=== PATIENT | female | born 1995 | race Caucasian/White ===

== ENCOUNTER → 2017-04-18 | Outpatient (CLI) | payer BC ==
[2017-04-18 10:09] LABS: EOS # 0.1 (0.04-0.40); HEMATOCRIT 42.7 % (37.0-47.0); HEMOGLOBIN 13.5 g/dL (12.5-16.0); LYMPH# 1.9 (1.50-4.00); MEAN CELL VOLUME 94 fl (78-100); MEAN CORPUSCULAR HEMOGLOBIN 30 pg (27-31); MEAN CORPUSCULAR HGB CONC 32 g/dL (33-37); MEAN PLATELET VOLUME 9.7 fl (7.4-10.4); MONO # 0.5 (0.20-0.80); NEU # 5.3 (1.40-6.50); PLATELET COUNT 317 K/mm3 (130-400); RED BLOOD COUNT 4.54 M/mm3 (4.10-5.30); RED CELL DISTRIBUTION WIDTH 12.6 % (11.5-14.5); WHITE BLOOD COUNT 7.8 K/mm3 (4.8-10.8)
[2017-04-18 10:12] LABS: ALBUMIN 4.7 g/dL (3.5-5.0); BUN/CREATININE RATIO 14.8 (6.0-26.0); CALCIUM 9.6 mg/dL (8.4-10.2); POTASSIUM 4.1 mmol/L (3.6-5.0); TOTAL BILIRUBIN 0.4 mg/dL (0.2-1.3); TOTAL PROTEIN 8.4 g/dL (6.3-8.2)
[2017-04-18 12:00] LABS: URINE APPEARANCE HAZY; URINE BILIRUBIN NEGATIVE (NEGATIVE); URINE BLOOD NEGATIVE (NEGATIVE); URINE COLOR YELLOW; URINE GLUCOSE NEGATIVE (NEGATIVE); URINE KETONE NEGATIVE (NEGATIVE); URINE LEUKOCYTE ESTERASE NEGATIVE (NEGATIVE); URINE NITRATE NEGATIVE (NEGATIVE); URINE PROTEIN(semi-quant) NEGATIVE (NEGATIVE); URINE UROBILINOGEN NORMAL (NORMAL); URINE WBC 0-1 /hpf (0-3)
== END ==
LOC: RAD 09:29
PROVIDERS: Family Medicine
DX: E66.3 Overweight (principal); Z00.00 Encounter for general adult medical examination without abnormal findings

== ENCOUNTER → 2017-09-12 | Outpatient (CLI) | payer BC ==
[2017-09-12 13:02] LABS: CLUE CELLS PRESENT (Not Observd)
[2017-09-12 14:14] LABS: URINE APPEARANCE HAZY; URINE COLOR YELLOW
[2017-09-12 14:15] LABS: URINE BILIRUBIN NEGATIVE (NEGATIVE); URINE BLOOD NEGATIVE (NEGATIVE); URINE GLUCOSE NEGATIVE (NEGATIVE); URINE KETONE NEGATIVE (NEGATIVE); URINE LEUKOCYTE ESTERASE 1+ (NEGATIVE); URINE NITRATE NEGATIVE (NEGATIVE); URINE PROTEIN(semi-quant) TRACE mg/dL (NEGATIVE); URINE UROBILINOGEN NORMAL (NORMAL)
== END ==
LOC: LAB 11:33
PROVIDERS: Nurse Practitioner Family
DX: R39.15 Urgency of urination (principal); N89.8 Other specified noninflammatory disorders of vagina
CPT/HCPCS: Q0111

== ENCOUNTER → 2017-12-17 | Outpatient (CLI) | payer BC | LOC: LAB 18:11 | DX: N39.0 Urinary tract infection, site not specified (principal) ==

== ENCOUNTER → 2018-01-15 | Outpatient (CLI) | payer BC ==
[2018-01-15 14:23] LABS: URINE APPEARANCE HAZY; URINE BILIRUBIN NEGATIVE (NEGATIVE); URINE BLOOD NEGATIVE (NEGATIVE); URINE COLOR YELLOW; URINE GLUCOSE NEGATIVE (NEGATIVE); URINE KETONE 2+ (NEGATIVE); URINE LEUKOCYTE ESTERASE NEGATIVE (NEGATIVE); URINE MUCUS PRESENT (NOT PRESENT); URINE NITRATE NEGATIVE (NEGATIVE); URINE PROTEIN(semi-quant) 1+ mg/dL (NEGATIVE); URINE UROBILINOGEN NORMAL (NORMAL); URINE WBC 0-1 /hpf (0-3)
== END ==
LOC: RAD 12:35
PROVIDERS: Nurse Practitioner Family
DX: R10.32 Left lower quadrant pain (principal)

== ENCOUNTER → 2018-07-01 | Outpatient (CLI) | payer BC ==
[2018-07-01 09:09] LABS: EOS # 0.1 (0.04-0.40); HEMATOCRIT 41.2 % (37.0-47.0); HEMOGLOBIN 13.2 g/dL (12.5-16.0); LYMPH# 1.7 (1.50-4.00); MEAN CELL VOLUME 96 fl (78-100); MEAN CORPUSCULAR HEMOGLOBIN 31 pg (27-31); MEAN CORPUSCULAR HGB CONC 32 g/dL (33-37); MEAN PLATELET VOLUME 9.9 fl (7.4-10.4); MONO # 0.7 (0.20-0.80); NEU # 5.6 (1.40-6.50); PLATELET COUNT 248 K/mm3 (130-400); RED CELL DISTRIBUTION WIDTH 12.6 % (11.5-14.5); WHITE BLOOD COUNT 8.1 K/mm3 (4.8-10.8)
[2018-07-01 09:15] LABS: ALBUMIN 4.9 g/dL (3.5-5.0); CALCIUM 9.6 mg/dL (8.4-10.2); POTASSIUM 4.1 mmol/L (3.6-5.0); TOTAL BILIRUBIN 0.9 mg/dL (0.2-1.3); TOTAL PROTEIN 7.9 g/dL (6.3-8.2)
== END ==
LOC: LAB 08:45
PROVIDERS: Family Medicine
DX: Z00.00 Encounter for general adult medical examination without abnormal findings (principal)

== ENCOUNTER 2018-10-23 15:25 | Emergency (ER) | payer BC ==
[~2018-10-23] VITALS: Ht 154.9 cm; Wt 60.5 kg
[2018-10-23] MEDS ORDERED: PRENATAL 19 TA1 EACH PO (15:47)
[2018-10-23] MEDS ORDERED: NATURE'S BLEND500 M5 PO (15:47)
[2018-10-23 16:27] LABS: HEMATOCRIT 40.9 % (37.0-47.0); HEMOGLOBIN 13.6 g/dL (12.5-16.0); MEAN CELL VOLUME 94 fl (78-100); MEAN CORPUSCULAR HEMOGLOBIN 31 pg (27-31); MEAN CORPUSCULAR HGB CONC 33 g/dL (33-37); MEAN PLATELET VOLUME 9.9 fl (7.4-10.4); PLATELET COUNT 255 K/mm3 (130-400); RED BLOOD COUNT 4.37 M/mm3 (4.10-5.30); RED CELL DISTRIBUTION WIDTH 13.2 % (11.5-14.5)
[2018-10-23 16:33] LABS: ALBUMIN 4.2 g/dL (3.5-5.0); POTASSIUM 4.1 mmol/L (3.5-5.1)
[2018-10-23 16:34] LABS: CALCIUM 9.2 mg/dL (8.3-10.5)
[2018-10-23 16:36] LABS: TOTAL PROTEIN 7.6 g/dL (6.4-8.3)
[2018-10-23 16:37] LABS: TOTAL BILIRUBIN 0.5 mg/dL (0.2-1.2)
[2018-10-23 16:46] LABS: NEUTROPHILS 96 % (42-75); WHITE BLOOD COUNT 21.6 K/mm3 (4.8-10.8)
[2018-10-23 16:47] LABS: LYMPHOCYTE 2 % (20-51); MONOCYTE 2 % (3-10)
[2018-10-23 18:32] LABS: URINE APPEARANCE HAZY; URINE BILIRUBIN NEGATIVE (NEGATIVE); URINE COLOR YELLOW; URINE GLUCOSE NEGATIVE (NEGATIVE); URINE KETONE 3+ (NEGATIVE); URINE NITRATE NEGATIVE (NEGATIVE); URINE PROTEIN(semi-quant) TRACE mg/dL (NEGATIVE); URINE UROBILINOGEN NORMAL (NORMAL)
[2018-10-23 18:33] LABS: URINE BLOOD NEGATIVE (NEGATIVE); URINE LEUKOCYTE ESTERASE TRACE (NEGATIVE)
[2018-10-23] MEDS ORDERED: AMOXIL500 M1 PO (20:58)
[2018-10-23] MEDS ORDERED: ZOFRAN ODT4 MG PO (20:58)
[2018-10-23 21:12] VITALS: BP 101/50
== END 2018-10-23 21:12 | disposition home or self-care (01) ==
LOC: AMSURD 15:25 → ED 15:25 → EDSTATUS 15:37 → ED 21:12
PROVIDERS: Nurse Practitioner
DX: O99.611 Diseases of the digestive system complicating pregnancy, first trimester (principal); A04.9 Bacterial intestinal infection, unspecified; E86.0 Dehydration; Z98.890 Other specified postprocedural states; Z3A.12 12 weeks gestation of pregnancy
CPT/HCPCS: J0290; J1885; J2405; J2550; J7030

== ENCOUNTER → 2018-10-25 | Outpatient (CLI) | payer BC ==
[2018-10-23 21:12] VITALS: BP 101/50
[~2018-10-25] MED LIST: AMOXIL500 M1 PO; NATURE'S BLEND500 M5 PO; PRENATAL 19 TA1 EACH PO; ZOFRAN ODT4 MG PO
== END ==
LOC: LAB 08:16
DX: R11.0 Nausea (principal); R51 Headache

== ENCOUNTER → 2019-06-07 | Outpatient (CLI) | payer BC ==
[2019-06-07 14:47] LABS: EOS # 0.1 (0.04-0.40); EOS % 1.4 % (1.0-5.0); HEMATOCRIT 42.3 % (37.0-47.0); HEMOGLOBIN 12.9 g/dL (12.5-16.0); LYMPH# 2.4 (1.50-4.00); MEAN CELL VOLUME 102 fl (78-100); MEAN CORPUSCULAR HEMOGLOBIN 31 pg (27-31); MEAN CORPUSCULAR HGB CONC 31 g/dL (33-37); MEAN PLATELET VOLUME 9.7 fl (7.4-10.4); MONO # 0.6 (0.20-0.80); NEU # 4.6 (1.40-6.50); PLATELET COUNT 237 K/mm3 (130-400); RED BLOOD COUNT 4.16 M/mm3 (4.10-5.30); RED CELL DISTRIBUTION WIDTH 12.2 % (11.5-14.5); WHITE BLOOD COUNT 7.8 K/mm3 (4.8-10.8)
[2019-06-07 15:00] LABS: ALBUMIN 4.3 g/dL (3.5-5.0)
[2019-06-07 15:01] LABS: POTASSIUM 4.2 mmol/L (3.5-5.1)
[2019-06-07 15:02] LABS: CALCIUM 9.4 mg/dL (8.3-10.5)
[2019-06-07 15:03] LABS: TOTAL PROTEIN 7.3 g/dL (6.4-8.3)
[2019-06-07 15:05] LABS: TOTAL BILIRUBIN 0.4 mg/dL (0.2-1.2)
== END ==
LOC: LAB 14:25
PROVIDERS: Family Medicine
DX: R00.2 Palpitations (principal)

== ENCOUNTER → 2020-03-09 | Outpatient (CLI) | payer BC ==
[2019-06-09 22:30] VITALS: BP 138/88
[~2020-03-09] MED LIST changes: +PROPRANOLOL HCL40 M2 PO; +XANAX0.25 M1 PO; +ZOLOFT 50MG50 MG PO
== END ==
LOC: LAB 09:49
DX: R11.2 Nausea with vomiting, unspecified (principal); R68.83 Chills (without fever); M79.10 Myalgia, unspecified site; R53.83 Other fatigue; Z20.828 Contact with and (suspected) exposure to other viral communicable diseases

== ENCOUNTER → 2020-07-03 | Outpatient (CLI) | payer BC ==
[2019-06-09 22:30] VITALS: BP 138/88
[2020-07-03 16:31] LABS: EOS # 0.1 (0.04-0.40); EOS % 1.4 % (1.0-5.0); HEMATOCRIT 41.3 % (37.0-47.0); HEMOGLOBIN 12.9 g/dL (12.5-16.0); LYMPH# 2.8 (1.50-4.00); MEAN CELL VOLUME 97 fl (78-100); MEAN CORPUSCULAR HEMOGLOBIN 30 pg (27-31); MEAN CORPUSCULAR HGB CONC 31 g/dL (33-37); MEAN PLATELET VOLUME 9.5 fl (7.4-10.4); MONO # 0.7 (0.20-0.80); NEU # 5.9 (1.40-6.50); PLATELET COUNT 299 K/mm3 (130-400); RED BLOOD COUNT 4.27 M/mm3 (4.10-5.30); RED CELL DISTRIBUTION WIDTH 12.3 % (11.5-14.5); WHITE BLOOD COUNT 9.5 K/mm3 (4.8-10.8)
[2020-07-03 16:35] LABS: ALBUMIN 4.9 g/dL (3.5-5.0); POTASSIUM 3.5 mmol/L (3.5-5.1); SODIUM 142 mmol/L (136-145)
[2020-07-03 16:37] LABS: CALCIUM 9.5 mg/dL (8.3-10.5)
[2020-07-03 16:38] LABS: GLUCOSE 93 mg/dL (65-105); TOTAL PROTEIN 7.8 g/dL (6.4-8.3)
[2020-07-03 16:39] LABS: CARBON DIOXIDE 25 mmol/L (22-29)
[2020-07-03 16:40] LABS: TOTAL BILIRUBIN 0.4 mg/dL (0.2-1.2)
[2020-07-03 16:43] LABS: AST-SGOT 17 U/L (5-34)
[2020-07-03 16:44] LABS: ALT/SGPT 17 U/L (0-55)
[2020-07-03 16:59] LABS: TROPONIN-I < 0.03 ng/mL (<0.030)
== END ==
LOC: LAB 16:09
PROVIDERS: Family Medicine
DX: R07.89 Other chest pain (principal)

== ENCOUNTER → 2020-12-22 | Outpatient (CLI) | payer BC | LOC: RAD 07:45 | DX: R11.0 Nausea (principal) ==

== ENCOUNTER → 2021-01-29 | Outpatient (CLI) | payer BC ==
[2021-01-29 12:07] LABS: HEMATOCRIT 39.3 % (37.0-47.0); HEMOGLOBIN 12.4 g/dL (12.5-16.0); MEAN PLATELET VOLUME 9.3 fl (7.4-10.4); RED BLOOD COUNT 4.11 M/mm3 (4.10-5.30); WHITE BLOOD COUNT 10.3 K/mm3 (4.8-10.8)
[2021-01-29 12:29] LABS: ALBUMIN 4.4 g/dL (3.5-5.0)
[2021-01-29 12:30] LABS: POTASSIUM 4.3 mmol/L (3.5-5.1)
[2021-01-29 12:31] LABS: CALCIUM 9.4 mg/dL (8.3-10.5)
[2021-01-29 12:32] LABS: TOTAL PROTEIN 7.7 g/dL (6.4-8.3)
[2021-01-29 12:34] LABS: TOTAL BILIRUBIN 0.4 mg/dL (0.2-1.2)
== END ==
LOC: LAB 11:51
PROVIDERS: Family Medicine
DX: G25.81 Restless legs syndrome (principal)

== ENCOUNTER → 2021-02-20 | Outpatient (CLI) | payer BC | LOC: LAB 09:47 | DX: J02.9 Acute pharyngitis, unspecified (principal) ==

== ENCOUNTER → 2021-02-26 | Outpatient (CLI) | payer BC ==
[2021-02-26 08:46] LABS: BASO # 0.05 K/mm3 (0.02-0.10); EOS # 0.15 K/mm3 (0.04-0.40); EOS % 1.5 % (1.0-5.0); HEMATOCRIT 39.7 % (37.0-47.0); HEMOGLOBIN 12.6 g/dL (12.5-16.0); LYMPH# 2.04 K/mm3 (1.50-4.00); MEAN CELL VOLUME 96 fl (78-100); MEAN CORPUSCULAR HEMOGLOBIN 30 pg (27-31); MEAN CORPUSCULAR HGB CONC 32 g/dL (33-37); MEAN PLATELET VOLUME 9.3 fl (7.4-10.4); MONO # 0.54 K/mm3 (0.20-0.80); NEU # 7.47 K/mm3 (1.40-6.50); PLATELET COUNT 272 K/mm3 (130-400); RED BLOOD COUNT 4.15 M/mm3 (4.10-5.30); RED CELL DISTRIBUTION WIDTH 11.9 % (11.5-14.5); WHITE BLOOD COUNT 10.3 K/mm3 (4.8-10.8)
== END ==
LOC: LAB 08:25
PROVIDERS: Nurse Practitioner Family
DX: J02.9 Acute pharyngitis, unspecified (principal)

== ENCOUNTER → 2021-04-19 | Outpatient (CLI) | payer BC ==
[2021-04-19 08:31] LABS: ALBUMIN 4.2 g/dL (3.5-5.0); POTASSIUM 4.1 mmol/L (3.5-5.1)
[2021-04-19 08:32] LABS: CALCIUM 9.2 mg/dL (8.3-10.5)
[2021-04-19 08:33] LABS: TOTAL PROTEIN 7.4 g/dL (6.4-8.3)
[2021-04-19 08:35] LABS: TOTAL BILIRUBIN 0.6 mg/dL (0.2-1.2)
[2021-04-19 22:23] LABS: FOLATE (FOLIC ACID) 9.5 ng/mL (2.0-20.0)
[2021-04-24 13:42] LABS: VITAMIN E 13.4 mg/L (())
== END ==
LOC: LAB 07:38
PROVIDERS: Family Medicine
DX: Z00.00 Encounter for general adult medical examination without abnormal findings (principal)

== ENCOUNTER → 2021-07-16 | Outpatient (CLI) | payer BC | LOC: LAB 11:29 | DX: E55.9 Vitamin D deficiency, unspecified (principal) ==

== ENCOUNTER → 2021-10-12 | Outpatient (CLI) | payer BC | LOC: LAB 13:56 | DX: N91.1 Secondary amenorrhea (principal) ==

== ENCOUNTER → 2023-03-25 | Outpatient (CLI) | payer BC ==
[~2023-03-25] MED LIST changes: +CEPHALEXIN500 M2 PO; +PEPCID 20MG TAB20 MG PO
[2023-03-25 16:00] LABS: BASO # 0.03 K/mm3 (0.02-0.10); EOS # 0.13 K/mm3 (0.04-0.40); EOS % 1.5 % (1.0-5.0); HEMATOCRIT 39.3 % (37.0-47.0); HEMOGLOBIN 12.6 g/dL (12.5-16.0); LYMPH# 2.71 K/mm3 (1.50-4.00); MEAN CELL VOLUME 95 fl (78-100); MEAN CORPUSCULAR HEMOGLOBIN 31 pg (27-31); MEAN CORPUSCULAR HGB CONC 32 g/dL (33-37); MEAN PLATELET VOLUME 9.2 fl (7.4-10.4); MONO # 0.47 K/mm3 (0.20-0.80); NEU # 5.44 K/mm3 (1.40-6.50); PLATELET COUNT 292 K/mm3 (130-400); RED BLOOD COUNT 4.12 M/mm3 (4.10-5.30); RED CELL DISTRIBUTION WIDTH 12.2 % (11.5-14.5); WHITE BLOOD COUNT 8.8 K/mm3 (4.8-10.8)
[2023-03-25 16:07] LABS: CALCIUM 9.9 mg/dL (8.3-10.5)
[2023-03-25 16:08] LABS: TOTAL PROTEIN 7.7 g/dL (6.4-8.3)
[2023-03-25 16:10] LABS: TOTAL BILIRUBIN 0.4 mg/dL (0.2-1.2)
== END ==
LOC: LAB 15:42
PROVIDERS: Nurse Practitioner
DX: E61.1 Iron deficiency (principal); K90.9 Intestinal malabsorption, unspecified

== ENCOUNTER → 2023-03-31 | Outpatient (CLI) | payer BC | LOC: LAB 16:20 | DX: R53.83 Other fatigue (principal) ==

== ENCOUNTER → 2023-08-29 | Outpatient (CLI) | payer BC ==
[2023-08-29 10:00] LABS: BASO # 0.03 K/mm3 (0.02-0.10); EOS # 0.04 K/mm3 (0.04-0.40); EOS % 0.8 % (1.0-5.0); HEMATOCRIT 38.9 % (37.0-47.0); HEMOGLOBIN 12.5 g/dL (12.5-16.0); LYMPH# 1.83 K/mm3 (1.50-4.00); MEAN CELL VOLUME 94 fl (78-100); MEAN CORPUSCULAR HEMOGLOBIN 30 pg (27-31); MEAN CORPUSCULAR HGB CONC 32 g/dL (33-37); MEAN PLATELET VOLUME 9.8 fl (7.4-10.4); MONO # 0.27 K/mm3 (0.20-0.80); NEU # 2.74 K/mm3 (1.40-6.50); PLATELET COUNT 250 K/mm3 (130-400); RED BLOOD COUNT 4.13 M/mm3 (4.10-5.30); WHITE BLOOD COUNT 4.9 K/mm3 (4.8-10.8)
[2023-08-29 10:01] LABS: ALBUMIN 4.7 g/dL (3.5-5.0)
[2023-08-29 10:03] LABS: CALCIUM 9.4 mg/dL (8.3-10.5)
[2023-08-29 10:04] LABS: TOTAL PROTEIN 7.3 g/dL (6.4-8.3)
[2023-08-29 10:06] LABS: TOTAL BILIRUBIN 0.6 mg/dL (0.2-1.2)
[2023-09-16 14:35] LABS: BAKERS YEAST ALLERGEN CLASS SEE REPORT (()); BAKERS YEAST ALLERGEN COUNT SEE REPORT (()); CORN ALLERGEN COUNT SEE REPORT (()); EGG WHITE ALLERGEN CLASS SEE REPORT (()); EGG WHITE ALLERGEN COUNT SEE REPORT (()); MILK ALLERGEN CLASS SEE REPORT (()); MILK ALLERGEN COUNT SEE REPORT (()); ORANGE ALLERGEN CLASS SEE REPORT (()); ORANGE ALLERGEN COUNT SEE REPORT (()); PEANUT ALLERGEN CLASS SEE REPORT (()); PEANUT ALLERGEN COUNT SEE REPORT (()); RICE ALLERGEN CLASS SEE REPORT (()); RICE ALLERGEN COUNT SEE REPORT (()); SOYBEAN ALLERGEN CLASS SEE REPORT (()); SOYBEAN ALLERGEN COUNT SEE REPORT (()); STRAWBERRY ALLERGEN CLASS SEE REPORT (()); STRAWBERRY ALLERGEN COUNT SEE REPORT (()); TOMATO ALLERGEN CLASS SEE REPORT (()); TOMATO ALLERGEN COUNT SEE REPORT (()); WHEAT ALLERGEN CLASS SEE REPORT (()); WHEAT ALLERGEN COUNT SEE REPORT (())
== END ==
LOC: LAB 08:59
PROVIDERS: Family Medicine
DX: J30.2 Other seasonal allergic rhinitis (principal); E78.5 Hyperlipidemia, unspecified; I10 Essential (primary) hypertension; B96.81 Helicobacter pylori [H. pylori] as the cause of diseases classified elsewhere; E55.9 Vitamin D deficiency, unspecified

== ENCOUNTER → 2023-09-19 | Outpatient (CLI) | payer BC | LOC: RAD 14:45 | DX: H93.13 Tinnitus, bilateral (principal) ==

== ENCOUNTER → 2023-10-22 | Outpatient (CLI) | payer BC ==
[2023-10-22 15:48] LABS: URINE APPEARANCE CLEAR (CLEAR); URINE COLOR YELLOW (YELLOW); URINE GLUCOSE NEGATIVE (NEGATIVE); URINE PROTEIN(semi-quant) NEGATIVE (NEGATIVE)
[2023-10-22 15:49] LABS: URINE BILIRUBIN 1+ (NEGATIVE); URINE BLOOD NEGATIVE (NEGATIVE); URINE KETONE TRACE (NEGATIVE); URINE LEUKOCYTE ESTERASE NEGATIVE (NEGATIVE); URINE NITRATE NEGATIVE (NEGATIVE); URINE WBC 0-1 /hpf (0-3)
== END ==
LOC: LAB 15:29
PROVIDERS: Nurse Practitioner
DX: R30.0 Dysuria (principal)

== ENCOUNTER → 2023-12-23 | Outpatient (CLI) | payer BC ==
[2023-12-23 11:29] LABS: URINE APPEARANCE CLEAR (CLEAR); URINE BILIRUBIN NEGATIVE (NEGATIVE); URINE BLOOD NEGATIVE (NEGATIVE); URINE COLOR YELLOW (YELLOW); URINE GLUCOSE NEGATIVE (NEGATIVE); URINE KETONE NEGATIVE (NEGATIVE); URINE LEUKOCYTE ESTERASE NEGATIVE (NEGATIVE); URINE NITRATE NEGATIVE (NEGATIVE); URINE PROTEIN(semi-quant) NEGATIVE (NEGATIVE); URINE WBC 0-1 /hpf (0-3)
== END ==
LOC: LAB 10:43
PROVIDERS: Family Medicine
DX: N39.0 Urinary tract infection, site not specified (principal)

== ENCOUNTER → 2024-01-23 | Outpatient (CLI) | payer BC ==
[2024-01-23 14:15] LABS: BASO # 0.03 K/mm3 (0.02-0.10); EOS # 0.07 K/mm3 (0.04-0.40); HEMOGLOBIN 12.3 g/dL (12.5-16.0); LYMPH# 2.27 K/mm3 (1.50-4.00); MEAN CELL VOLUME 95 fl (78-100); MEAN CORPUSCULAR HEMOGLOBIN 31 pg (27-31); MEAN CORPUSCULAR HGB CONC 32 g/dL (33-37); MEAN PLATELET VOLUME 9.7 fl (7.4-10.4); MONO # 0.31 K/mm3 (0.20-0.80); NEU # 4.61 K/mm3 (1.40-6.50); PLATELET COUNT 259 K/mm3 (130-400); RED BLOOD COUNT 4.02 M/mm3 (4.10-5.30); RED CELL DISTRIBUTION WIDTH 12.3 % (11.5-14.5); WHITE BLOOD COUNT 7.3 K/mm3 (4.8-10.8)
[2024-01-23 14:31] LABS: LIPASE 64 U/L (8-78)
== END ==
LOC: LAB 14:04
PROVIDERS: Nurse Practitioner
DX: R10.9 Unspecified abdominal pain (principal)

== ENCOUNTER → 2024-01-27 | Outpatient (CLI) | payer BC ==
[~2024-01-27] MED LIST changes: +Gadoterate 20 ML VIAL IV ONE
== END ==
LOC: RAD 12:07
DX: H93.13 Tinnitus, bilateral (principal)
CPT/HCPCS: A9575

== ENCOUNTER → 2024-04-04 | Outpatient (CLI) | payer BC ==
[~2024-04-04] MED LIST changes: -Gadoterate 20 ML VIAL IV ONE
[2024-04-05 16:54] LABS: FOLLICLE STIMULATING HORMONE 6.1 mIU/mL (())
== END ==
LOC: LAB 11:48
DX: N90.5 Atrophy of vulva (principal)

== ENCOUNTER → 2024-04-19 | Outpatient (CLI) | payer BC ==
[2024-04-19 08:05] LABS: BASO # 0.02 K/mm3 (0.02-0.10); EOS # 0.07 K/mm3 (0.04-0.40); HEMATOCRIT 38.7 % (37.0-47.0); HEMOGLOBIN 12.3 g/dL (12.5-16.0); LYMPH# 2.43 K/mm3 (1.50-4.00); MEAN CELL VOLUME 95 fl (78-100); MEAN CORPUSCULAR HEMOGLOBIN 30 pg (27-31); MEAN CORPUSCULAR HGB CONC 32 g/dL (33-37); MEAN PLATELET VOLUME 9.3 fl (7.4-10.4); MONO # 0.37 K/mm3 (0.20-0.80); NEU # 4.41 K/mm3 (1.40-6.50); PLATELET COUNT 310 K/mm3 (130-400); RED BLOOD COUNT 4.07 M/mm3 (4.10-5.30); RED CELL DISTRIBUTION WIDTH 12.4 % (11.5-14.5); WHITE BLOOD COUNT 7.3 K/mm3 (4.8-10.8)
[2024-04-19 08:07] LABS: ALBUMIN 4.4 g/dL (3.5-5.0)
[2024-04-19 08:08] LABS: CALCIUM 9.2 mg/dL (8.3-10.5)
[2024-04-19 08:09] LABS: TOTAL PROTEIN 7.5 g/dL (6.4-8.3)
[2024-04-19 08:11] LABS: TOTAL BILIRUBIN 0.5 mg/dL (0.2-1.2)
== END ==
LOC: LAB 07:47
PROVIDERS: Family Medicine
DX: I10 Essential (primary) hypertension (principal); E78.5 Hyperlipidemia, unspecified; E55.9 Vitamin D deficiency, unspecified

== ENCOUNTER → 2024-04-29 | Outpatient (CLI) | payer BC | LOC: LAB 13:58 | DX: Z28.39 Other underimmunization status (principal) ==